=== PATIENT | female | born 1970 | race Caucasian/White ===

== ENCOUNTER → 2016-08-16 | Outpatient (CLI) | payer BC ==
[~2016-08-16] MED LIST: ADVIN10/60 INH
--- NOTE | 2016-08-16 13:55 | MAMMOGRAPHY REPORT ---
UNILATERAL RIGHT DIGITAL DIAGNOSTIC MAMMOGRAM TOMOSYNTHESIS WITH CAD: 08/16/2016 CLINICAL HISTORY: 45 year old woman presents for follow-up of 2 effacing nodular asymmetries in the medial posterior right breast, only seen on the CC view, without sonographic correlate. TECHNIQUE: Right CC, MLO and XCCM 2-D digital and tomosynthesis images were obtained. Current stud y was also evaluated with a Computer Aided Detection (CAD) system. COMPARISON: Comparison is made to exams dated: 02/16/2016 mammogram, 02/16/2016 ultrasound, 02/03/2016 mammogram, and 12/10/2013 mammogram - [facility]. BREAST COMPOSITION: There are scattered areas of fibroglandular density in the right breast. FINDINGS: The 2 small nodular asymmetries in the medial, far posterior right breast, only seen on th e CC view are no longer identified on the standard CC view. An additional exaggerated medial CC vie w was obtained to ensure they are no longer seen and this also demonstrates complete resolution, sug gesting they represented normal overlapping tissue. There are stable microcalcifications scattered in the right breast. No new suspicious mass, architectural distortion or cluster of microcalcificat ions is seen. Recommend follow-up at time of next annual screening mammogram. IMPRESSION: ACR BI-RADS CATEGORY 2: BENIGN The 2 small nodular asymmetries in the medial, far posterior right breast are no longer identified, confirming benignity. There is no mammographic evidence of malignancy. Return to annual mammogram s creening schedule is recommended. The patient has been verbally notified of the results. Approximately 10% of breast cancers are not detected with mammography. A negative mammographic repor t should not delay biopsy if a clinically suggestive mass is present. Chica Mora M.D. ay/:08/16/2016 12:47:08 Merchandising Execution Manager: Hosea LOPES(Rickie)(M), [facility] letter sent: Normal 1/2 BI-RADS Code: ACR BI-RADS Category 2: Benign
== END | disposition home or self-care (01) ==
LOC: C.MAMM 09:05
PROVIDERS: ATTEND Internal Medicine
DX: R92.8 Other abnormal and inconclusive findings on diagnostic imaging of breast (principal)

== ENCOUNTER → 2017-02-03 | Outpatient (CLI) | payer BC ==
--- NOTE | 2017-02-03 15:39 | MAMMOGRAPHY REPORT ---
BILATERAL DIGITAL SCREENING MAMMOGRAM TOMOSYNTHESIS WITH CAD: 02/03/2017 CLINICAL HISTORY: Routine screening. TECHNIQUE: Breast tomosynthesis in addition to standard 2D mammography was performed. Current study was also evaluated with a Computer Aided Detection (CAD) system. COMPARISON: Comparison is made to exams dated: 08/16/2016 mammogram, 02/16/2016 mammogram, 02/03/2016 ma mmogram, 01/28/2015 mammogram, 12/10/2013 mammogram, and 12/08/2012 mammogram - [facility]. BREAST COMPOSITION: There are scattered areas of fibroglandular density in both breasts. FINDINGS: No suspicious masses, calcifications, or areas of architectural distortion are noted in ei ther breast. There has been no significant interval change compared to prior exams. Scattered bilater al benign-appearing calcifications are not significantly changed. IMPRESSION: ACR BI-RADS CATEGORY 2: BENIGN There is no mammographic evidence of malignancy. A 1 year screening mammogram is recommended. The pa tient will receive written notification of the results. Approximately 10% of breast cancers are not detected with mammography. A negative mammographic report should not delay biopsy if a clinically suggestive mass is present. Alexia Steen M.D. /:02/03/2017 15:18:56 Public Policy Associate: Hosea LOPES(R)(M), [facility] letter sent: Normal 1/2 BI-RADS Code: ACR BI-RADS Category 2: Benign
== END | disposition home or self-care (01) ==
LOC: C.MAMM 13:15
PROVIDERS: ATTEND Internal Medicine
DX: Z12.31 Encounter for screening mammogram for malignant neoplasm of breast (principal)